=== PATIENT | female | born 1975 ===

== ENCOUNTER 2021-08-20 11:32 | Outpatient (REF) | payer OTHER, SELFPAY ==
--- NOTE | 2021-08-22 07:59 | MHC.AU.ANO ---
Adult Audiological Evaluation Date of Visit: 08/20/21 [employer] Specialist Used: Not Applicable Reason for Appointment: Audiologic evaluation due to decreased hearing ability in the left ear. Lacy reports she first noticed a change in hearing in 2018 which was gradual in nature. She reports she was evaluated by [facility] and believes her hearing test was normal for both ears at that time. No further assessment was advised. The hearing loss in the left ear has progressed and she is no longer able to use the telephone with the left ear. Lacy denies any history of head trauma or illness associated with the change in hearing and no symptoms of tinnitus or dizziness. 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 Has hearing been tested previously?: Yes Previous Hearing Test Results: Approximately 2018. Results are not available for review Hearing Handicap Inventory: HHIE SCORE: 16 Based on HHIE score, patient has: Mild to moderate perceived hearing handicap Medical History: Medical History: Headache, Migraines Medication List: Ibuprofen as needed Otoscopy: Right Ear: Small amount of non-occluding cerumen Left Ear: Unremarkable Tympanometry: Tympanometry performed due to: To assess integrity of the middle ear system Right Ear: Normal Middle Ear System (Type A) Left Ear: Normal Middle Ear System (Type A) Otoacoustic Emissions Frequency Range Used: 1.6-8 kHz Right Ear Results: Present 1600 & 2000 Hz. Absent 5937-5516 Hz Analysis: Present emissions suggest normal cochlear function Reduced/Absent emissions suggest cochlear dysfunction Results are consistent with degree and configuration of hearing loss Left Ear Results: Absent 7176-2237 Hz Analysis: Reduced/Absent emissions suggest cochlear dysfunction Results are consistent with degree and configuration of hearing loss Hearing Evaluation: Transducer(s) Used: Insert Earphones Bone Conduction Method: Conventional Audiometry Stimuli Used: Pure Tones Right Ear: Description of Hearing: Normal hearing thresholds 250-2000 and 9878-7777 Hz with a mild sensorineural hearing loss at 4000 Hz Left Ear: Description of Hearing: Moderate to moderately-severe mixed hearing loss 250-8000 Hz Speech Recognition Threshold (SRT): Method Used: Monitored Live Voice Stimuli Used: Spondee Words Right Ear: 5 dB HL Left Ear: 50 dB HL Word Discrimination: Method: Recorded Lists Word Lists Used: NU-6 Right Ear: 100% at 50 dB HL Left Ear: 88% at 85 dB HL Interpretation of Results: Results indicate a mild sensorineural hearing loss for the right ear at 4000 Hz which is likely related to Lacy's history of noise exposure. Left ear results show a moderate to moderately-severe mixed hearing loss of unknown etiology. This hearing loss causes decreased speech understanding, particularly when in noise or the speaker is at a distance. Localization of sound is also difficult. Recommendations: - Referral to Ear, Nose, and Throat is recommended for further investigation of the asymmetric hearing loss. - If the left ear loss cannot be treated medically, advise trial period with a hearing aid. - Hearing protection should be used when around loud noise. - Audiological re-evaluation in one year. Will send a reminder card Diagnosis: Primary Diagnosis: H90.3 Bilateral Sensorineural Hearing Loss Services Performed: Comprehensive Audiological Evaluation (CPT 67572) Diagnostic Otoacoustic Emissions (CPT 40088, 26+TC) Tympanometry (CPT 79803) Pure Tone Arabella (CPT 51613) Signature: Provider: Brando Cyr, CCC-A
== END 2021-08-20 11:33 | disposition home or self-care (01) ==
LOC: HO.SH 11:32
PROVIDERS: PCP Internal Medicine; Visit Provider Internal Medicine
DX: Z01.118 Encounter for examination of ears and hearing with other abnormal findings (principal); H90.3 Sensorineural hearing loss, bilateral
CPT/HCPCS: 92557; 92565; 92567; 92588